=== PATIENT | female | born 1960 | race African-American/Black ===

== ENCOUNTER → 2020-04-11 | Outpatient (CLI) | payer OTHER | LOC: M.ULTRA 04-01 13:39 | PROVIDERS: ATTEND Registered Nurse Diabetes Educator | DX: K76.0 Fatty (change of) liver, not elsewhere classified (principal); M25.551 Pain in right hip; R10.13 Epigastric pain ==

== ENCOUNTER → 2021-06-01 | Outpatient (CLI) | payer OTHER | LOC: M.CT 14:21 | PROVIDERS: ATTEND Registered Nurse Diabetes Educator | DX: K57.30 Diverticulosis of large intestine without perforation or abscess without bleeding (principal); R11.0 Nausea; Z78.9 Other specified health status ==